=== PATIENT | female | born 1950 | race Caucasian/White ===

== ENCOUNTER 2016-07-16 15:30 | Emergency (ER) | payer OTHER ==
[~2016-07-16] VITALS: Ht 160 cm; Wt 74.2 kg
[~2016-07-16 15:30] MED LIST: ATIVAN1 MG PO; EFFEXOR75 MG PO; PULMICORT180 MICROG IH
[2016-07-16 17:37] VITALS: BP 110/68
== END 2016-07-16 17:38 | disposition home or self-care (01) ==
LOC: EME 15:30
PROC: 2W3SX1Z Immobilization of Right Foot using Splint (ICD-10-PCS; principal; 2016-07-16)
DX: S92.351A Displaced fracture of fifth metatarsal bone, right foot, initial encounter for closed fracture (principal); W17.89XA Other fall from one level to another, initial encounter; Y93.E9 Activity, other interior property and clothing maintenance
CPT/HCPCS: 73630; 99281; 99284